=== PATIENT | male | born 1970 | race Caucasian/White ===

== ENCOUNTER → 2016-04-09 | Outpatient (CLI) | payer BC ==
[~2016-04-09] MED LIST: GLUCTAB7 PO; MULT-618 PO; OMEG10002 PO
[2016-04-09 13:35] LABS: MEAN CELL VOLUME 87.5 fL (80-100); MEAN CORPUSCULAR HEMOGLOBIN 30.2 pg (25-34); MEAN CORPUSCULAR HGB CONC 34.5 g/dl (32-36); MEAN PLATELET VOLUME 11.6 fL (7.4-10.4); PLATELET COUNT 175 K/uL (130-400); RED BLOOD COUNT 5.03 M/uL (4.7-6.1); WHITE BLOOD COUNT 5.46 K/uL (4.8-10.8)
[2016-04-09 13:58] LABS: BLOOD UREA NITROGEN 13 mg/dl (7-18); BUN/CREATININE RATIO 12.2 (10-20); CALCIUM 8.8 mg/dl (8.5-10.1); CARBON DIOXIDE 28 mmol/L (21-32); CHLORIDE 106 mmol/L (98-107); CHOLESTEROL 175 mg/dl (0-200); GLUCOSE 97 mg/dl (70-99); SODIUM 139 mmol/L (136-145)
[2016-04-09 14:08] LABS: CHOLESTEROL/HDL RATIO 4.4; HDL CHOLESTEROL 40 mg/dl; LDL CHOLESTEROL CALCULATED 108 mg/dl; TRIGLYCERIDES 133 mg/dl (0-150); VERY LOW DENSITY LIPOPROT CALC 27 mg/dl
== END | disposition home or self-care (01) ==
LOC: C.LABBC 09:42
PROVIDERS: ATTEND Family Medicine
DX: Z13.220 Encounter for screening for lipoid disorders (principal); R03.0 Elevated blood-pressure reading, without diagnosis of hypertension